=== PATIENT | male | born 1985 | race American Indian/Alaskan Native ===

== ENCOUNTER 2018-03-31 11:03 | Emergency (ER) | payer OTHER ==
[2018-03-31] MEDS ORDERED: MOTRIN PO ONE (13:26)
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
[2018-03-31 13:35] VITALS: BP 145/87
== END 2018-03-31 13:53 | disposition home or self-care (01) ==
LOC: ED 11:03
DX: S13.4XXA Sprain of ligaments of cervical spine, initial encounter (principal); S39.012A Strain of muscle, fascia and tendon of lower back, initial encounter; F17.200 Nicotine dependence, unspecified, uncomplicated; V79.50XA Passenger on bus injured in collision with unspecified motor vehicles in traffic accident, initial encounter; Y93.89 Activity, other specified; Y99.8 Other external cause status; Y92.488 Other paved roadways as the place of occurrence of the external cause
CPT/HCPCS: 99283